=== PATIENT | female | born 1955 | race Caucasian/White ===

== ENCOUNTER 2018-12-12 14:02 | Outpatient (CLI) | payer OTHER ==
--- NOTE | 2018-12-12 16:16 | RAD ---
RADIOGRAPH RIGHT SHOULDER TWO VIEWS: Date: 12-12-18 History: 63-year-old female with right shoulder pain. Disability evaluation. M25.511. Comparison: None. FINDINGS: Mild degenerative changes at AC joint with small inferior osteophytes. Mild or minimal degenerative c hanges at the glenohumeral joint. No subluxation or dislocation. No fracture. No rotator cuff calcifi cations. No destructive osseous lesion. IMPRESSION: 1. Mild osteoarthrosis. 2. No high grade pathology identified. POS: [facility]
== END 2018-12-12 14:03 | disposition home or self-care (01) ==
LOC: NAV RAD 14:02
PROVIDERS: ATTEND Family Medicine
DX: Z02.71 Encounter for disability determination (principal); M25.511 Pain in right shoulder; M19.011 Primary osteoarthritis, right shoulder